=== PATIENT | male | born 1985 | race American Indian/Alaskan Native ===

== ENCOUNTER 2017-03-22 15:28 | Emergency (ER) | payer SELFPAY ==
--- NOTE | 2017-03-22 19:45 | Emergency Department Report ---
ED Eye Problem HPI - General Chief complaint: Eye Problems Stated complaint: LT EYE RED W/SWELLING Time Seen by Provider: 03/22/17 19:00 Source: patient Mode of arrival: Ambulatory Limitations: No Limitations - History of Present Illness Initial comments: Patient here complaining of left eyelid stye for 7 days. He said he is been putting stye medication on left upper eyelid but it's not working. When asked if he's having pain, patient says that it's painless. Denies any blurred vision or loss of vision. Patient said he usually wears glasses but he doesn't have them with him. Denies any trauma to eye. Denies any fever or chills. chief complaint: other (eyelid stye) Onset/Timin -: week(s) Location: left eye (eye lid) If Injury: none Eye Symptoms: other (left upper eyelid with stye) Severity scale (0 -10): 0 Associated Symptoms: none Treatments Prior to Arrival: other ([id number] stye medication) - Related Data Previous Rx's Medication Instructions Recorded Last Taken Type Gentamicin 0.3% Ophth Oint 1 applicatio OP Q8H #7 tube 03/22/17 Unknown Rx Allergies Allergy/AdvReac Type Severity Reaction Status Date / Time No Known Allergies Allergy Verified 03/22/17 16:03 ED Review of Systems ROS: Stated complaint: LT EYE RED W/SWELLING Other details as noted in HPI Comment: All other systems reviewed and negative Constitutional: denies: chills, fever Eyes: other (reports left upper eyelid stye which is painless). denies: eye pain, eye discharge, vision change ENT: denies: ear pain, throat pain, congestion Respiratory: no symptoms reported Cardiovascular: denies: chest pain, palpitations, edema, syncope Skin: denies: rash Neurological: denies: headache, abnormal gait, vertigo ED Past Medical Hx - Past Medical History Previous Medical History?: Yes Hx Hypertension: Yes - Surgical History Past Surgical History?: No - Family History Family history: no significant - Social History Smoking Status: Current Every Day Smoker Substance Use Type: Alcohol - Medications Home Medications: Home Medications Medication Instructions Recorded Confirmed Last Taken Type Gentamicin 0.3% Ophth Oint 1 applicatio OP Q8H #7 tube 03/22/17 Unknown Rx ED Physical Exam - General Limitations: No Limitations General appearance: alert, in no apparent distress - Head Head exam: Present: atraumatic, normocephalic, normal inspection - Eye Eye exam: Present: normal appearance, PERRL, EOMI. Absent: scleral icterus, conjunctival injection, nystagmus, periorbital swelling, periorbital tenderness Pupils: Present: normal accommodation - Expanded Eye Exam Expanded Eyelids: Stye: Left (indurated erythema nonfluctuant and nontender to palpate. pea size), Erythema: Left (upper lid) Pupils: Regular, Round: Bilateral, Reactive: Bilateral Sclera/Conjunctival: Normal Inspection: Bilateral Anterior chamber: Normal Inspection: Bilateral Posterior chamber: Normal Inspection: Bilateral Visual acuity (R) = 20/: 40 Visual acuity (L) = 20/: 30 (20/25 both eyes) With correction: No - ENT ENT exam: Present: normal exam, normal orophraynx, mucous membranes moist, TM's normal bilaterally, normal external ear exam - Neck Neck exam: Present: normal inspection, full ROM. Absent: tenderness, meningismus, lymphadenopathy - Respiratory Respiratory exam: Present: normal lung sounds bilaterally. Absent: respiratory distress, chest wall tenderness - Cardiovascular Cardiovascular Exam: Present: regular rate, normal rhythm, normal heart sounds - Extremities Exam Extremities exam: Present: normal inspection, full ROM, normal capillary refill. Absent: tenderness, pedal edema - Neurological Exam Neurological exam: Present: alert, oriented X3, normal gait - Psychiatric Psychiatric exam: Present: normal affect, normal mood - Skin Skin exam: Present: warm, dry, intact, normal color. Absent: rash ED Course Vital Signs 03/22/17 16:00 Temperature 98.4 F Pulse Rate 84 Respiratory 16 Rate Blood Pressure 141/97 O2 Sat by Pulse 99 Oximetry - Reevaluation(s) Reevaluation #1: 03/22/17 20:36 stable throughout ED course. ED Medical Decision Making - Medical Decision Making ED course: Patient with she lays on to left upper eyelid. I discussed with patient that he will need to follow-up with eye doctor for management. I also discussed with him that he can continue to put warm compresses to affected area and will empirically treat him with gentamicin ointment. He was given information on she lays on. He voiced understanding of discharge diagnosis and treatment plan and discharged home with prescription for gentamicin ophthalmic ointment. Critical care attestation.: If time is entered above; I have spent that time in minutes in the direct care of this critically ill patient, excluding procedure time. ED Disposition Clinical Impression: Chalazion left upper eyelid Disposition: DISCHARGED TO HOME OR SELFCARE Is pt being admited?: No Does the pt Need Aspirin: No Condition: Stable Instructions: Chalazion (ED) Additional Instructions: Please remember to follow up with eye doctor as instructed. Prescriptions: Gentamicin 0.3% Ophth Oint 1 applicatio OP Q8H #7 tube Referrals: [facility] [Outside] - 3-5 Days ALYX SUÁREZ MD [Staff Physician] - 2-3 Days Forms: Work/School Release Form(ED)
[2017-03-22 20:51] VITALS: BP 135/78
== END 2017-03-22 20:51 | disposition home or self-care (01) ==
LOC: ED 15:28
DX: H00.14 Chalazion left upper eyelid (principal); F17.200 Nicotine dependence, unspecified, uncomplicated
CPT/HCPCS: 99282